=== PATIENT | male | born 1980 | race Two or more races ===

== ENCOUNTER 2019-08-11 09:57 | Emergency (ER) | payer SELFPAY ==
[~2019-08-11] VITALS: Ht 180.3 cm; Wt 91.0 kg
[2019-08-11 11:08] VITALS: BP 149/78
== END 2019-08-11 14:12 | disposition left against medical advice (07) ==
LOC: ER 09:57
DX: Z53.21 Procedure and treatment not carried out due to patient leaving prior to being seen by health care provider (principal)

== ENCOUNTER 2022-05-22 14:33 | Inpatient (IN) | payer MEDICAID ==
[~2022-05-22] VITALS: Ht 180.3 cm; Wt 88.5 kg
[2022-05-22] MEDS ORDERED: ONDANSETRON HCL 4MG/2ML INJ IV STA (15:08)
[2022-05-22] MEDS ORDERED: MORPHINE SULFATE 4 MG/ML CPJ (NOT FOR IM USE) IV STA (15:08)
[2022-05-22] MEDS ORDERED: SODIUM CHLORIDE 0.9% 1,000 ML IV ONE (15:15)
[2022-05-22 15:54] LABS: BASOPHILS % 0.5 % (0.0-2.0); EOSINOPHILS % 1.2 % (0.0-5.0); HEMATOCRIT. 44.6 % (42.0-52.0); HEMOGLOBIN. 15.3 g/dL (14.0-18.0); LYMPHOCYTES % 20.5 % (20.0-50.0); MEAN CORPUSCULAR HEMOGLOBIN 31.2 pg (28.0-32.0); MEAN CORPUSCULAR VOLUME 90.8 fL (80.0-94.0); MEAN PLATELET VOLUME 7.6 fl (7.4-10.4); MONOCYTES % 14.4 % (2.0-8.0); NEUTROPHILS % 63.4 % (40.0-76.0); PLATELET 325 x1000/uL (130-400); RED BLOOD CELL COUNT 4.91 mill/uL (4.7-6.1); RED CELL DISTRIBUTION WIDTH 13.8 % (11.6-14.6)
[2022-05-22 16:05] LABS: CHLORIDE 97 mEq/L (98-107)
[2022-05-22] MEDS ORDERED: IOHEXOL-300 100 ML BOTTLE ONE (16:59)
[2022-05-22 18:39] LABS: CLARITY URINE CLEAR (CLEAR); COLOR URINE YELLOW (YELLOW); KETONES URINE NEGATIVE (NEGATIVE); LEUKOCYTE ESTERASE URINE NEGATIVE (NEGATIVE); NITRITE URINE NEGATIVE (NEGATIVE); OCCULT BLOOD URINE NEGATIVE (NEGATIVE); PROTEIN URINE 1+ (NEGATIVE); SPECIFIC GRAVITY URINE >1.040 (1.005-1.030); UROBILINOGEN URINE 0.2 E.U./dL (0.2-1.0)
[2022-05-22] MEDS ORDERED: PANTOPRAZOLE SODIUM 40 MG/VIAL IV ONE (19:15)
[2022-05-22] MEDS ORDERED: IPRATROPIUM/ALBUTEROL 0.5-3(2.5)MG/3ML NEB NEB PRN (20:45)
[2022-05-22] MEDS ORDERED: LORAZEPAM 2MG/ML CPJ IV PRN (20:45)
[2022-05-22] MEDS ORDERED: ONDANSETRON HCL 4MG/2ML INJ IV PRN (20:45)
[2022-05-22] MEDS ORDERED: NITROGLYCERIN 0.4MG TABLET SL SL PRN (20:45)
[2022-05-22] MEDS ORDERED: ACETAMINOPHEN 650MG SUPP PR PRN ×2 (20:45)
[2022-05-22 22:05] LABS: T4 FREE 1.08 ng/dL (0.76-1.46)
[2022-05-22 22:19] LABS: VITAMIN B12 SERUM 583 pg/mL (211-911)
[2022-05-22] MEDS: KETOROLAC 15MG/ML VIAL IV PRN (22:29)
[2022-05-22] MEDS: DEXT 5%/LACTATED RINGERS 1,000 ML IV SCH (23:46)
[2022-05-22] MEDS: ENOXAPARIN 40MG/0.4ML SYR SUBCUT SCH (23:46)
[2022-05-23] VITALS (7 sets, daily range): BP systolic 92–115; BP diastolic 56–73
[2022-05-23 08:12] LABS: HEMATOCRIT. 41.9 % (42.0-52.0); HEMOGLOBIN. 14.2 g/dL (14.0-18.0); MEAN CORPUSCULAR HEMOGLOBIN 30.8 pg (28.0-32.0); MEAN CORPUSCULAR VOLUME 90.9 fL (80.0-94.0); MEAN PLATELET VOLUME 7.5 fl (7.4-10.4); PLATELET 300 x1000/uL (130-400); RED BLOOD CELL COUNT 4.62 mill/uL (4.7-6.1); RED CELL DISTRIBUTION WIDTH 13.4 % (11.6-14.6)
[2022-05-23] MEDS: PANTOPRAZOLE SODIUM 40 MG/VIAL IV SCH (08:47)
[2022-05-23 09:32] LABS: CHLORIDE 101 mEq/L (98-107)
[2022-05-23] MEDS: KETOROLAC 15MG/ML VIAL IV PRN ×2 (09:47→21:38)
[2022-05-23 09:57] LABS: PHOSPHORUS 2.8 mg/dL (2.5-4.9)
[2022-05-23 11:10] LABS: PLATELET ESTIMATE NORMAL
[2022-05-23] MEDS: ENOXAPARIN 40MG/0.4ML SYR SUBCUT SCH (21:37)
[2022-05-23] MEDS: DEXT 5%/LACTATED RINGERS 1,000 ML IV SCH ×2 (21:37→23:25)
[2022-05-24] VITALS: BP 110/58
[2022-05-24 04:00] VITALS: BP 108/66
[2022-05-24] MEDS: KETOROLAC 15MG/ML VIAL IV PRN ×3 (06:45→21:09)
[2022-05-24 08:00] VITALS: BP 118/63
[2022-05-24 08:19] LABS: HEMATOCRIT 41.9 % (42.0-52.0); HEMOGLOBIN 14.3 g/dL (14.0-18.0); MEAN CORPUSCULAR VOLUME 90.9 fL (80.0-94.0); PLATELET 297 x1000/uL (130-400); RED BLOOD CELL COUNT 4.61 mill/uL (4.7-6.1); RED CELL DISTRIBUTION WIDTH 13.9 % (11.6-14.6)
[2022-05-24] MEDS: PANTOPRAZOLE SODIUM 40 MG/VIAL IV SCH (08:49)
[2022-05-24 10:40] LABS: CHLORIDE 101 mEq/L (98-107)
[2022-05-24 11:04] LABS: PHOSPHORUS 2.5 mg/dL (2.5-4.9)
[2022-05-24 12:00] VITALS: BP 114/64
[2022-05-24] MEDS: DEXT 5%/LACTATED RINGERS 1,000 ML IV SCH (13:07)
[2022-05-24 16:00] VITALS: BP 113/71
[2022-05-24 20:00] VITALS: BP 120/70
[2022-05-24] MEDS: ENOXAPARIN 40MG/0.4ML SYR SUBCUT SCH (21:06)
[2022-05-25] VITALS: BP 118/65
[2022-05-25] MEDS: KETOROLAC 15MG/ML VIAL IV PRN (02:22)
[2022-05-25] MEDS: DEXT 5%/LACTATED RINGERS 1,000 ML IV SCH (02:27)
[2022-05-25 04:00] VITALS: BP 128/66
[2022-05-25 08:00] VITALS: BP 124/68
[2022-05-25] MEDS: PANTOPRAZOLE SODIUM 40 MG/VIAL IV SCH (08:36)
[2022-05-25 11:01] VITALS: BP 124/68
== END 2022-05-25 11:31 | disposition home or self-care (01) | DRG 249 ==
LOC: ER 14:33 → 6EST 19:26 → ENRESERV 21:54
PROVIDERS: ADMIT Internal Medicine; ATTEND Internal Medicine
DX: K52.9 Noninfective gastroenteritis and colitis, unspecified (principal); K56.609 Unspecified intestinal obstruction, unspecified as to partial versus complete obstruction; F17.210 Nicotine dependence, cigarettes, uncomplicated; Z82.49 Family history of ischemic heart disease and other diseases of the circulatory system
CPT/HCPCS: 36415; 74177; 80048; 80053; 81003; 82607; 82746; 83036; 83540; 83550; 83605; 83735; 84100; 84439; 84443; 85025; 85027; 93005; 93970; 97162; 99285; C9113; J1650; J1885; J2270; J2405; J7030; Q9967